=== PATIENT | male | born 2000 | race Asian ===

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

== ENCOUNTER 2021-03-31 15:43 | Outpatient (CLI) | payer OTHER, SELFPAY | END 2021-03-31 23:59 | disposition short-term general hospital (02) | LOC: IMMUN 04-08 15:46 | PROVIDERS: Visit Provider Family Medicine | DX: Z23 Encounter for immunization (principal) ==